=== PATIENT | male | born 1970 | race Caucasian/White ===

== ENCOUNTER 2018-01-23 22:29 | Emergency (ER) | payer MEDICAID, OTHER ==
[~2018-01-23] VITALS: Ht 172.7 cm; Wt 100.0 kg
[2018-01-23 22:43] VITALS: BP 133/79; PULSE 97; RESP 18; TEMP 99; O2SAT 98
[2018-01-23] MEDS ORDERED: seizure medication (22:43)
[2018-01-23] MEDS ORDERED: VIAG25TA PO (23:16)
[2018-01-23] MEDS ORDERED: METF500T PO (23:16)
[2018-01-23] MEDS ORDERED: FURO1TAB61 PO (23:16)
[2018-01-23] MEDS ORDERED: FLUT1SPR5 EACH NARE (23:16)
[2018-01-23] MEDS ORDERED: ASPI81TA23 PO (23:16)
[2018-01-23] MEDS ORDERED: SPIR25 PO (23:16)
[2018-01-23] MEDS ORDERED: TOPR25TA PO (23:16)
[2018-01-23] MEDS ORDERED: NITR0.4S SL (23:16)
[2018-01-23] MEDS ORDERED: BENZ0.5T PO (23:16)
[2018-01-23] MEDS ORDERED: ABIL20TA5 PO (23:16)
[2018-01-23] MEDS ORDERED: DEPA250T2 PO (23:16)
[2018-01-23] MEDS ORDERED: VIST50CA PO (23:16)
[2018-01-23] MEDS ORDERED: CETI10 PO (23:16)
[2018-01-23] MEDS ORDERED: LIPI20TA PO (23:16)
[2018-01-23] MEDS ORDERED: ALBUAER3 INH (23:16)
[2018-01-23] MEDS ORDERED: LACO50 PO (23:16)
[2018-01-23] MEDS ORDERED: CELE40TA PO (23:16)
[2018-01-23] MEDS ORDERED: KEPP750T PO (23:16)
[2018-01-23] MEDS ORDERED: COZA50TA PO (23:16)
[2018-01-23] MEDS ORDERED: IBUPROFEN 600 MG TAB PO ONE (23:30)
[2018-01-23] MEDS ORDERED: oxyCODONE/ACETAMINOPHEN 5 MG/325 MG TAB PO ONE (23:30)
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
[2018-01-24] MEDS ORDERED: IBUP-232 PO (02:08)
== END 2018-01-24 02:14 | disposition home or self-care (01) ==
LOC: NEPE 22:29
DX: S80.11XA Contusion of right lower leg, initial encounter (principal); M54.5 Low back pain; F84.0 Autistic disorder; X58.XXXA Exposure to other specified factors, initial encounter; Y93.I1 Activity, roller coaster riding; Y92.831 Amusement park as the place of occurrence of the external cause
CPT/HCPCS: 73590; 99283